=== PATIENT | female | born 1990 | race Caucasian/White ===

== ENCOUNTER 2020-03-07 18:20 | Emergency (ER) | payer OTHER ==
[~2020-03-07] VITALS: Ht 160 cm; Wt 88.5 kg
[2020-03-07] MEDS ORDERED: MOTRIN PM CAPL1 EACH (18:39)
[2020-03-07] MEDS ORDERED: CEFADROXIL500 MG PO (18:56)
[2020-03-07] MEDS ORDERED: DICLOFENAC SODI75 MG PO (18:56)
== END 2020-03-07 20:09 | disposition home or self-care (01) ==
LOC: ER 18:20
DX: J03.90 Acute tonsillitis, unspecified (principal); H66.93 Otitis media, unspecified, bilateral

== ENCOUNTER 2020-09-10 17:37 | Emergency (ER) | payer OTHER ==
[~2020-09-10] VITALS: Ht 160 cm; Wt 90.7 kg
[~2020-09-10 17:37] MED LIST: CEFADROXIL500 MG PO; DICLOFENAC SODI75 MG PO; MOTRIN PM CAPL1 EACH
[2020-09-10] MEDS ORDERED: MUCINEX600 MG (18:06)
[2020-09-10] MEDS ORDERED: TYLENOL EXTRA500 MG (18:06)
== END 2020-09-10 22:27 | disposition home or self-care (01) ==
LOC: ER 17:37
DX: K52.9 Noninfective gastroenteritis and colitis, unspecified (principal); R53.81 Other malaise

== ENCOUNTER 2025-07-03 11:51 | Outpatient (CLI) | payer OTHER ==
[~2025-07-03 11:51] MED LIST changes: +MUCINEX600 MG; +TYLENOL EXTRA500 MG
== END 2025-07-03 11:54 | disposition home or self-care (01) ==
LOC: PRENATAL 11:51
PROVIDERS: ATTEND Obstetrics & Gynecology Maternal & Fetal Medicine
DX: O44.02 Complete placenta previa NOS or without hemorrhage, second trimester (principal); O34.219 Maternal care for unspecified type scar from previous cesarean delivery; O43.92 Unspecified placental disorder, second trimester; Z3A.22 22 weeks gestation of pregnancy